=== PATIENT | female | born 1990 | race Caucasian/White ===

== ENCOUNTER 2018-04-30 07:09 | Observation (INO) | payer BC ==
[~2018-04-30 07:09] MED LIST: CEFAZOLIN 1 GM INJ
[2018-04-30] MEDS: FENTAnyl 50 MCG/ML VIAL IV ×2 (07:18→08:03)
[2018-04-30 07:30] LABS: ADD MAN DIFF? NO
[2018-04-30 07:33] LABS: WHITE BLOOD COUNT 9.1 10^3/ul (4.8-10.8)
[2018-04-30 07:33] LABS: BASOPHILS % 0.4 % (0.0-2.0); EOSINOPHILS # 0.1 10^3/ul (0.0-0.5); EOSINOPHILS % 1.5 % (0.0-7.0); HEMATOCRIT 30.9 % (37.0-47.0); HEMOGLOBIN 9.8 g/dl (12.0-16.0); LYMPHOCYTES # 3.2 10^3/ul (0.8-2.9); LYMPHOCYTES % 34.7 % (15.0-51.0); MEAN CORPUSCULAR HEMOGLOBIN 21.8 pg (29.0-33.0); MEAN CORPUSCULAR HGB CONC 31.7 g/dl (32.0-37.0); MEAN CORPUSCULAR VOLUME 68.8 fl (82.0-101.0); MEAN PLATELET VOLUME 11.5 fl (7.4-10.4); MONOCYTE # 0.5 10^3/ul (0.3-0.9); MONOCYTES % 4.9 % (0.0-11.0); NEUTROPHIL # 5.3 10^3/ul (1.6-7.5); NEUTROPHILS % 58.2 % (39.0-77.0); PLATELET COUNT 274 10^3/UL (140-415); RED BLOOD COUNT 4.49 10^6/ul (4.20-5.40); RED CELL DISTRIBUTION WIDTH 15.6 % (11.5-14.5)
[2018-04-30] MEDS: SOD CHLORIDE 0.9% 1,000 ML IV ×3 (07:52→11:16)
[2018-04-30] MEDS: ONDANSETRON 4 MG INJ IV (07:53)
[2018-04-30] MEDS: KETOROLAC 30 MG INJ IV (07:53)
[2018-04-30 08:02] LABS: ALANINE AMINOTRANSFERASE 29 IU/L (13-69); ALBUMIN/GLOBULIN RATIO 1.53; ALKALINE PHOSPHATASE 59 IU/L (42-121); ANION GAP 12 (8-16); ASPARTATE AMINO TRANSFERASE 20 IU/L (15-46); BILIRUBIN,INDIRECT 0.5 mg/dl (0-1.1); BILIRUBIN,TOTAL 0.5 mg/dl (0.2-1.3); BLOOD UREA NITROGEN 13 mg/dl (7-20); CALCIUM 8.6 mg/dl (8.4-10.2); CARBON DIOXIDE 22 mmol/L (21-31); CHLORIDE 110 mmol/L (97-110); CREATININE 0.59 mg/dl (0.44-1.00); GLUCOSE 107 mg/dl (70-220); LIPASE 106 U/L (23-300); POTASSIUM 3.6 mmol/L (3.5-5.1); SODIUM 140 mmol/L (135-144); TOTAL PROTEIN 6.6 g/dl (6.1-8.1)
[2018-04-30 08:11] LABS: ADD UMIC YES; UR ASCORBIC ACID NEGATIVE (NEGATIVE); UR BILIRUBIN (Dip) NEGATIVE (NEGATIVE); UR BLOOD (Dip) 3+ mg/dL (NEGATIVE); UR CLARITY SLIGHTLY CLOUDY (CLEAR); UR COLOR YELLOW (YELLOW); UR GLUCOSE (Dip) NEGATIVE (NEGATIVE); UR KETONES (Dip) NEGATIVE (NEGATIVE); UR LEUKOCYTE ESTERASE (Dip) NEGATIVE Leu/ul (NEGATIVE); UR MUCUS MODERATE /HPF (NONE SEEN); UR NITRITE (Dip) NEGATIVE (NEGATIVE); UR RBC 9 /HPF (0-5); UR SPECIFIC GRAVITY (Dip) 1.026 (1.003-1.030); UR SQUAMOUS EPITHELIAL CELL FEW /HPF (FEW); UR TOTAL PROTEIN (Dip) 1+ mg/dl (NEGATIVE); UR UROBILINOGEN (Dip) NEGATIVE (NEGATIVE); UR WBC 6 /HPF (0-5)
[2018-04-30] MEDS ORDERED: ONDANSETRON 4 MG INJ IV ×2 (11:00→11:30)
[2018-04-30] MEDS ORDERED: ACETAMINOPHEN 325 MG TAB PO ×2 (11:00→11:30)
[2018-04-30] MEDS ORDERED: DOCUSATE SODIUM 100 MG CAP PO (11:30)
[2018-04-30] MEDS ORDERED: MAGNESIUM HYDROXIDE 30ML CUP PO (11:30)
[2018-04-30] MEDS ORDERED: LORAZEPAM 2 MG INJ IV (11:30)
[2018-04-30] MEDS ORDERED: NACL 0.9% 3 ML SYG IV (11:30)
[2018-04-30] MEDS ORDERED: morphine 2 MG INJ IV (11:30)
[2018-04-30] MEDS ORDERED: BISACODYL (EC) 5 MG TAB PO (11:30)
[2018-04-30] MEDS ORDERED: ROCURONIUM 50 MG INJ (14:35)
[2018-04-30] MEDS ORDERED: MIDAZOLAM 1 MG/ML 2 ML INJ (14:35)
[2018-04-30] MEDS ORDERED: LIDOCAINE 1% (MDV) 20 ML INJ (14:35)
[2018-04-30] MEDS ORDERED: FENTAnyl 50 MCG/ML VIAL (14:35)
[2018-04-30] MEDS ORDERED: PROPOFOL 20 ML (14:35)
[2018-04-30] MEDS ORDERED: ONDANSETRON 4 MG INJ (14:51)
[2018-04-30] MEDS ORDERED: DEXAMETHASONE 4 MG/ML 1 ML INJ (14:51)
[2018-04-30] MEDS ORDERED: ROPIVACAINE 0.2% 20 ML VIAL (15:21)
[2018-04-30] MEDS ORDERED: SUGAMMADEX SODIUM 200 MG/2 ML VIAL IV (15:26)
[2018-04-30] MEDS ORDERED: KETOROLAC 30 MG INJ (15:26)
[2018-04-30] MEDS ORDERED: HYDROmorphONE 1 MG/5 ML IV SYRINGE IV ×2 (16:30)
[2018-04-30] MEDS: HYDROmorphONE 1 MG/5 ML IV SYRINGE IV (16:44)
[2018-04-30] MEDS: FAMOTIDINE 20 MG INJ IV (21:16)
[2018-05-01] MEDS: SOD CHLORIDE 0.9% 1,000 ML IV ×2 (01:04→07:16)
[2018-05-01 05:19] LABS: ADD MAN DIFF? NO
[2018-05-01 05:21] LABS: WHITE BLOOD COUNT 6.4 10^3/ul (4.8-10.8)
[2018-05-01 05:21] LABS: ABNORMAL IP MESSAGE 1; BASOPHILS % 0.3 % (0.0-2.0); HEMATOCRIT 28.5 % (37.0-47.0); HEMOGLOBIN 9.1 g/dl (12.0-16.0); LYMPHOCYTES # 1.2 10^3/ul (0.8-2.9); LYMPHOCYTES % 19.1 % (15.0-51.0); MEAN CORPUSCULAR HEMOGLOBIN 22.2 pg (29.0-33.0); MEAN CORPUSCULAR HGB CONC 31.9 g/dl (32.0-37.0); MEAN CORPUSCULAR VOLUME 69.5 fl (82.0-101.0); MEAN PLATELET VOLUME 11.8 fl (7.4-10.4); MONOCYTE # 0.5 10^3/ul (0.3-0.9); MONOCYTES % 7.3 % (0.0-11.0); NEUTROPHIL # 4.7 10^3/ul (1.6-7.5); NEUTROPHILS % 73.1 % (39.0-77.0); PLATELET COUNT 242 10^3/UL (140-415); RED CELL DISTRIBUTION WIDTH 15.2 % (11.5-14.5)
[2018-05-01 05:37] LABS: ALANINE AMINOTRANSFERASE 52 IU/L (13-69); ALBUMIN 3.5 g/dl (3.3-4.9); ALKALINE PHOSPHATASE 44 IU/L (42-121); ANION GAP 10 (8-16); ASPARTATE AMINO TRANSFERASE 35 IU/L (15-46); BILIRUBIN,INDIRECT 0.6 mg/dl (0-1.1); BILIRUBIN,TOTAL 0.6 mg/dl (0.2-1.3); BLOOD UREA NITROGEN 9 mg/dl (7-20); CALCIUM 8.9 mg/dl (8.4-10.2); CARBON DIOXIDE 25 mmol/L (21-31); CHLORIDE 109 mmol/L (97-110); CREATININE 0.58 mg/dl (0.44-1.00); GLUCOSE 90 mg/dl (70-220); MAGNESIUM 1.8 mg/dl (1.7-2.5); POTASSIUM 3.9 mmol/L (3.5-5.1); SODIUM 140 mmol/L (135-144)
[2018-05-01 05:39] LABS: POSITIVE DIFF @See below
[2018-05-01] MEDS: FAMOTIDINE 20 MG INJ IV (10:11)
[2018-05-01] MEDS: HYDROCODONE/APAP (5/325) TAB PO (12:57)
[2018-05-01] MEDS ORDERED: morphine LIQ (10 MG/5 ML) CUP PO (14:30)
== END 2018-05-01 16:00 | disposition home or self-care (01) ==
LOC: E/R 07:09 → SDS 14:40 → REC 14:44 → MS1 17:25
DX: N83.01 Follicular cyst of right ovary (principal)
CPT/HCPCS: 36415; 74176; 76775; 76830; 76856; 80053; 81001; 81025; 83036; 83690; 83735; 84702; 85025; 88305; 93005; 96374; 96375; 96376; 99291-25